=== PATIENT | male | born 1965 | race Caucasian/White ===

== ENCOUNTER → 2023-02-12 10:02 | Outpatient (CLI) | payer BC, SELFPAY ==
[2023-02-12 19:53] LABS: Basophils # 0.1 K/mm3 (0-0.2); Basophils % 0.7 % (0.1-2.0); Eosinophils # 0.3 K/mm3 (0.0-0.4); Eosinophils % 3.6 % (0.1-12.0); Hematocrit 54.2 % (42.0-52.0); Hemoglobin 17.6 g/dL (14.1-18.0); Lymphocytes % 23.6 % (10-50); Mean Corpuscular HGB Conc 32.5 g/dL (31.8-35.4); Mean Corpuscular Volume 98.7 fl (80-94); Mean Platelet Volume 10.8 fl (7.4-10.4); Monocytes # 0.7 K/mm3 (0.1-1.0); Neutrophils # 5.3 K/mm3 (1.8-7.8); Platelet Count 206 K/mm3 (142-424); Red Blood Count 5.49 M/mm3 (4.60-6.20); Red Cell Distribution Width 13.7 % (11.5-17.5); White Blood Count 8.3 K/mm3 (4.8-10.8)
[2023-02-12 19:57] LABS: Alanine Aminotransferase 22 U/L (12-78); Albumin Level 4.4 g/dl (3.5-5.0); Albumin/Globulin Ratio 1.4 (1.1-1.8); Alkaline Phosphatase 59 U/L (38-126); Anion Gap 11.6 mEq/L (5-15); Aspartate Amino Transferase 21 U/L (17-59); Bilirubin,Total 0.7 mg/dl (0.2-1.3); Blood Urea Nitrogen 19 mg/dl (9-20); Calcium 9.6 mg/dl (8.4-10.2); Carbon Dioxide 22 mmol/L (22.0-30.0); Chloride 109 mmol/L (98-107); Estimated Glomerular Filt Rate 87 ml/min (>60); GFR (African American) 106 ML/MIN (>60); Globulin 3.2 g/dL (1.3-3.2); Glucose 100 mg/dl (74-100); Potassium 4.6 mmoL/L (3.5-5.1); Sodium 138 mmol/L (136-145); Total Protein,Serum 7.6 g/dl (6.3-8.2)
[2023-02-12 20:25] LABS: Prostate Specific Ag Screen 1.6 ng/ml (0.0-4.0); Thyroid Stimulating Hormone 0.78 uIU/mL (0.465-4.68)
[2023-02-12 21:29] LABS: Hemoglobin A1C 5.2 % (4.0-6.0)
== END ==
PROVIDERS: PCP Nurse Practitioner; Visit Provider Nurse Practitioner
DX: R42 Dizziness and giddiness (principal); Z12.5 Encounter for screening for malignant neoplasm of prostate; Z79.899 Other long term (current) drug therapy
CPT/HCPCS: 80053; 83036; 84443; 85025; G0103

== ENCOUNTER 2023-05-16 17:56 | Outpatient (CLI) | payer BC, SELFPAY ==
[2023-05-16 19:18] LABS: Basophils # 0.1 K/mm3 (0-0.2); Basophils % 1.1 % (0.1-2.0); Eosinophils # 0.3 K/mm3 (0.0-0.4); Eosinophils % 2.6 % (0.1-12.0); Hematocrit 52.6 % (42.0-52.0); Hemoglobin 17.7 g/dL (14.1-18.0); Lymphocytes % 20.9 % (10-50); Mean Corpuscular HGB Conc 33.6 g/dL (31.8-35.4); Mean Corpuscular Hemoglobin 33.5 pg (27.0-31.2); Mean Corpuscular Volume 99.4 fl (80-94); Mean Platelet Volume 10.3 fl (7.4-10.4); Monocytes # 0.6 K/mm3 (0.1-1.0); Monocytes % 6.3 % (1.7-9.3); Neutrophils # 6.7 K/mm3 (1.8-7.8); Neutrophils % 68.9 % (37.0-80.0); Platelet Count 206 K/mm3 (142-424); Red Blood Count 5.29 M/mm3 (4.60-6.20); Red Cell Distribution Width 13.6 % (11.5-17.5); White Blood Count 9.7 K/mm3 (4.8-10.8)
[2023-05-16 20:04] LABS: Chloride 105 mmol/L (98-107); Potassium 4.6 mmoL/L (3.5-5.1); Sodium 137 mmol/L (136-145)
[2023-05-16 20:06] LABS: Alanine Aminotransferase 26 U/L (12-78); Aspartate Amino Transferase 24 U/L (17-59); Blood Urea Nitrogen 14 mg/dl (9-20); Estimated Glomerular Filt Rate 69 ml/min (>60); GFR (African American) 84 ML/MIN (>60)
[2023-05-16 20:07] LABS: Albumin Level 4.4 g/dl (3.5-5.0); Albumin/Globulin Ratio 1.7 (1.1-1.8); Alkaline Phosphatase 64 U/L (38-126); Anion Gap 12.6 mEq/L (5-15); Bilirubin,Total 0.5 mg/dl (0.2-1.3); Calcium 9.3 mg/dl (8.4-10.2); Carbon Dioxide 24 mmol/L (22.0-30.0); Globulin 2.6 g/dL (1.3-3.2); Glucose 100 mg/dl (74-100)
== END 2023-05-16 23:59 ==
LOC: LAB.DROPOF 17:57
PROVIDERS: PCP Nurse Practitioner; Visit Provider Nurse Practitioner
DX: K92.1 Melena (principal)
CPT/HCPCS: 80053; 85025

== ENCOUNTER 2024-09-04 15:50 | Outpatient (CLI) | payer BC, SELFPAY ==
--- NOTE | 2024-09-04 16:02 | ECG_ITS ---
APPROVED REPORT Exam: Resting ECG HR:60 bpm ECG Measurements Heart Rate 60 AXES MA 166 P 59 QRSd 98 QRS 88 QT 403 T 52 QTc [address] DEVIATION AND MODERATE T-WAVE ABNORMALITY, CONSIDER ANTEROLATERAL ISCHEMIA [-0.1+ mV T-WAVE IN V3-V6] ABNORMAL ECG UNCONFIRMED REPORT Electronically signed by : Rc Lang MD 09/07/2024 08:06:27
--- NOTE | 2024-09-04 16:10 | XR_ITS ---
FINAL REPORT TECHNIQUE: Chest PA & Lateral CLINICAL HISTORY: Shortness of breath COMPARISON: None FINDINGS: 2 views of the chest were performed. The heart size is normal. The mediastinum is within normal limits. There is no acute cardiopulmonary process. There are no pleural effusions. There is no pneumothorax. The bony thorax appears intact. IMPRESSION: No acute cardiopulmonary process. Reviewed, Interpreted and Dictated by Tutu Butler MD Transcribed by Darcy Swain Authenticated and [facility]
[2024-09-04 16:54] LABS: Basophils # 0.1 K/mm3 (0-0.2); Basophils % 0.7 % (0.1-2.0); Eosinophils # 0.3 Kmm3 (0.0-0.4); Eosinophils % 3.2 % (0.1-12.0); Hematocrit 48.4 % (42.0-52.0); Hemoglobin 16.3 g/dL (14.1-18.0); Lymphocytes # 2.4 K/mm3 (0.7-4.5); Lymphocytes % 24.7 % (10-50); Mean Corpuscular HGB Conc 33.7 g/dL (31.8-35.4); Mean Corpuscular Hemoglobin 31.5 pg (27.0-31.2); Mean Corpuscular Volume 93.4 fl (80-94); Monocytes # 0.9 K/mm3 (0.1-1.0); Neutrophils # 5.9 K/mm3 (1.8-7.8); Neutrophils % 62.2 % (37.0-80.0); Nucleated Red Blood Cells # 0 10^3/uL; Nucleated Red Blood Cells % 0 %; Platelet Count 202 K/mm3 (142-424); Red Blood Count 5.18 M/mm3 (4.60-6.20); Red Cell Distribution Width 13.1 % (11.5-17.5); Red Cell Distribution Width-SD 44.8 fL; White Blood Count 9.5 K/mm3 (4.8-10.8)
[2024-09-04 17:19] LABS: Alanine Aminotransferase 16 U/L (12-78); Albumin Level 4.9 g/dl (3.5-5.0); Alkaline Phosphatase 59 U/L (38-126); Anion Gap 10.1 mEq/L (5-15); Aspartate Amino Transferase 21 U/L (17-59); Bilirubin,Total 0.8 mg/dl (0.2-1.3); Blood Urea Nitrogen 13 mg/dl (9-20); Calcium 10.3 mg/dl (8.4-10.2); Carbon Dioxide 25 mmol/L (22.0-30.0); Chloride 106 mmol/L (98-107); Estimated Glomerular Filt Rate 69 ml/min (>60); GFR (African American) 83 ML/MIN (>60); Globulin 2.4 g/dL (1.3-3.2); Glucose 81 mg/dl (74-100); Potassium 4.1 mmoL/L (3.5-5.1); Sodium 137 mmol/L (136-145); Total Protein,Serum 7.3 g/dl (6.3-8.2)
[2024-09-04 17:49] LABS: Prostate Specific Ag Screen 1.9 ng/ml (0.0-4.0); Thyroid Stimulating Hormone 1.22 uIU/mL (0.465-4.68)
[2024-09-04 18:08] LABS: Vitamin B12 920 pg/mL (239-931)
[2024-09-04 18:50] LABS: Hemoglobin A1C 5.2 % (4.0-6.0)
== END 2024-09-04 23:59 | disposition home or self-care (01) ==
LOC: RT 15:51
PROVIDERS: PCP Nurse Practitioner; Visit Provider Nurse Practitioner
DX: R06.02 Shortness of breath (principal); Z13.1 Encounter for screening for diabetes mellitus; Z12.5 Encounter for screening for malignant neoplasm of prostate; Z87.891 Personal history of nicotine dependence; R94.31 Abnormal electrocardiogram [ECG] [EKG]
CPT/HCPCS: 36415; 71046; 80053; 82607; 83036; 84443; 85025; 93005; G0103

== ENCOUNTER 2024-09-13 11:05 | Outpatient (CLI) | payer BC, SELFPAY ==
[2024-09-13 12:06] LABS: Cholesterol 215 mg/dl (140-200); Triglycerides 112 mg/dl (30-150); VLDL Cholesterol 22 mg/dL (0-40)
[2024-09-13 12:07] LABS: Chol/HDL Ratio 5.5 (1-3.5); HDL Cholesterol 39 mg/dl (40-60)
[2024-09-13 12:17] LABS: Direct LDL Cholesterol 152.44 mg/dL (100-129)
== END 2024-09-13 23:59 | disposition home or self-care (01) ==
LOC: LAB 11:06
PROVIDERS: PCP Nurse Practitioner; Visit Provider Nurse Practitioner
DX: Z13.220 Encounter for screening for lipoid disorders (principal)
CPT/HCPCS: 36415; 80061

== ENCOUNTER 2024-09-16 15:22 | Outpatient (CLI) | payer BC, SELFPAY ==
--- NOTE | 2024-12-16 10:22 | PC.NURSE ---
[employer] notified RT - no data on monitor - no charge to patient
== END 2024-09-16 23:59 | disposition home or self-care (01) ==
LOC: RT 15:23
PROVIDERS: PCP Nurse Practitioner; Visit Provider Nurse Practitioner
DX: R94.31 Abnormal electrocardiogram [ECG] [EKG] (principal); R06.02 Shortness of breath
CPT/HCPCS: 93270

== ENCOUNTER 2024-09-18 13:08 | Outpatient (CLI) | payer BC, SELFPAY ==
--- NOTE | 2024-09-18 13:45 | CA_ITS ---
APPROVED REPORT EXAM: Comprehensive 2D, Doppler, and color-flow Echocardiogram Focus Puller: Bettie Henson, MAURICIO, RVS Ht: 5 ft 7 in Wt: 203lbs BSA: 2.04 BP: 123/59 mmHg Indications: Palpitations, Smoker, HLD, SOB 2D Dimensions IVSd 0.88 cm M: 0.6-1.2 LVEF (Visual) 75.10 % PWd 0.90 cm M: 0.6 - 1.2 LVDd 4.82 cm M: 4.2 - 5.9 LVDs 2.70 cm M: 2.5 - 4.0 Left Atrium 3.46 cm M: 3.0 - 4.0 M-Mode Dimensions RVDd 2.53 cm (0.9-2.6) LA Diam 3.24 cm (1.9-4.0) LVDd 4.95 cm (3.5-5.7) LVDs 4.01 cm (3.5-5.7) IVSd 1.02 cm (0.6-1.1) PWd 0.95 cm (0.6-1.1) EF (Teich) 39.00% EPSs 0.52 cm FS 19.00% EDV (Teich) 115.50 mL TAPSE 2.66 (<1.7) ESV (Teich) 70.40 mL LV Diastology E Decel Time 220 (160-240 msec) E/A Ratio 1.19 MED A' 10.00 cm/s LAT A' 9.20 cm/s Aortic Valve PEYTON Index 1.26 cm2/m2 AoV Peak Cheikh. 103.0 (50-130 cm/s) AO Peak GR. 4.20 mmHg AO Mean GR. 2.20 (<5 mmHg) AO VTI 22.5 (18-25 cm) PEYTON (VTI) 2.63 (2.5-4.5 cm2) Mitral Valve MV A Velocity 62.0 (40-130 cm/s) E/A Ratio 1.19 Tricuspid Valve TR P. Velocity 182.00 cm/s RAP Estimate 10.00 mmHg RVSP 23.20 mmHg Left Ventricle The left ventricle is normal size. The left ventricular systolic function is normal. The left ventricular ejection fraction is within the normal range. There is normal left ventricular wall thickness. There is normal LV segmental wall motion. The left ventricular diastolic function is normal. LVEF is 55%. Right Ventricle The right ventricle is normal size. The right ventricular systolic function is normal. Atria The left atrium size is normal. The right atrium size is normal. There is no Doppler evidence of interatrial shunt. Aortic Valve The aortic valve is normal in structure. There is no aortic valvular stenosis. No aortic regurgitation is present. Mitral Valve The mitral valve is normal in structure. No evidence of mitral valve stenosis. There is no mitral valve regurgitation noted. Tricuspid Valve Tricuspid valve is grossly normal in structure and function. Trace tricuspid regurgitation. There is insufficient TR jet to estimate RVSP. Pulmonic Valve The pulmonary valve is normal in structure. Trace pulmonic regurgitation. Great Vessels The aortic root is normal in size. IVC is normal in size and collapses >50% with inspiration. Pericardium There is no pericardial effusion. Other Information Study Quality: Adequate Conclusion Normal biventricular systolic function. No significant valvular stenosis or regurgitation. Electronically signed by : Carol Erickson MD 09/28/2024 21:09:43
--- NOTE | 2024-09-18 14:30 | CT_ITS ---
FINAL REPORT TECHNIQUE: Axial CT images of the chest were obtained without contrast. Coronal and sagittal reconstructed images were also obtained. Low-dose protocol was utilized. This study was performed with techniques to keep radiation doses as low as reasonably achievable (ALARA). Individualized dose reduction techniques using automated exposure control or adjustment of mA and/or kV according to the patient's size were employed. 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 There are calcified left hilar lymph nodes. There are few small scattered mediastinal lymph nodes. The heart size is normal. There is no pericardial or pleural effusion. Lung window images demonstrate calcified granulomas in the left lower lobe of the lung. Limited images of the upper abdomen are unremarkable. IMPRESSION: Lung RADS category 1. Recommend 12 month follow-up low-dose chest CT per Fleischner criteria. Reviewed, Interpreted and Dictated by Tutu Butler MD Transcribed by Darcy Swain Authenticated and [facility]
== END 2024-09-18 23:59 | disposition home or self-care (01) ==
LOC: RT 13:10
PROVIDERS: PCP Nurse Practitioner; Visit Provider Nurse Practitioner
DX: E78.5 Hyperlipidemia, unspecified (principal); R00.2 Palpitations; R06.02 Shortness of breath; F17.200 Nicotine dependence, unspecified, uncomplicated; Z80.1 Family history of malignant neoplasm of trachea, bronchus and lung; Z12.2 Encounter for screening for malignant neoplasm of respiratory organs
CPT/HCPCS: 71271; 93306

== ENCOUNTER 2024-11-06 09:44 | Outpatient (CLI) | payer BC, SELFPAY ==
--- NOTE | 2024-11-06 | CA_ITS ---
APPROVED REPORT Exam: Exercise Treadmill Technologist: Mariela Maynard Ht: 5 ft 7 in Wt: 199 lbs BSA: 2.02 m2 HR: 67 bpm BP: 163/91 mmHg Medical History Cardiac Risk Factors: Smoking Stress Test Details HR Resting HR: 67 bpm Max Heart Rate (APMHR): 162.010450 bpm Target HR (85% APMHR): 137.033647 bpm Recovery HR: 93 bpm BP Resting BP: 163.0/91.0 mmHg Recovery BP: 193.0/73.0 mmHg ECG Stress ECG Conclusion During lakia protocol pt stopped due to fatigue. Pt experinced SOA. PVCs and PACs noted. <1.5mm ST segment Electronically signed by : Carol Erickson MD 11/06/2024 12:37:36
--- OUTSIDE RECORDS SUMMARY | 2024-11-06 09:49 | XMS_ITS | Clinical Summary ---
Author Organization [facility] Address [address] [place] [address] Phone Care Team Providers Care Lining Stuffer Name Role Phone Unavailable Primary Care Provider Unavailabl e Allergies No known active allergies Medications No known medications Active Problems Problem Noted Date Diagnosed Date Wears glasses Surgical History Surgery Date Site/Laterality Comments TONSILLECTOMY TYMPANOSTOMY TUBE PLACEMENT DENTAL SURGERY upper dentures, missing teeth on bottom, wisdom teeth removed EYE SURGERY 05/07/2005 - 05/06/2006 Bilateral LASIK HERNIA REPAIR 05/07/1974 - 05/06/1975 Left inguinal FOOT SURGERY Bilateral ligament/tendon repair BICEPS TENDON REPAIR 03/10/2016 Left LEFT OPEN DISTAL BICEPS TENDON REPAIR ; Surgeon: Gerald Shukla MD; Location: [facility]; Service: Orthopedics Medical devices from this surgery are in the Medical Devices section. Medical History Medical History Date Comments Smoker 1.5 PPD, started smoking at age 21 Wears glasses Wears dentures upper dentures, missing teeth on bottom Family History Medical History Relation Name Comments COPD Father Diabetes Father on dialysis Heart Disease Father CABG High Blood Pressure Father High Cholesterol Father COPD Mother Heart Disease Mother High Blood Pressure Mother Relation Name Status Comments Father Alive Mother Alive Social History Tobacco Use Types Packs/Day Years Used Date Smoking Tobacco: Every Day Cigarettes 1 38.5 Started: 05/07/1986 Smokeless Tobacco: Never Alcohol Use Standard Drinks/Week Comments No 0 (1 standard drink = 0.6 oz pur e alcohol) Sex and Gender Information Value Date Recorded Sex Assigned at Not on file Legal Sex Male 2:59 PM EDT Gender Identity Not on file Sexual Orientation Not on file Obstetrics History Last Filed Vital Signs Vital Sign Reading Time Taken Comments Blood Pressure 154/78 03/29/2023 11:00 AM EST Pulse 63 03/29/2023 11:00 AM EST Temperature 36.8 C (98.3 F) 03/29/2023 11:00 AM EST Respiratory Rate 16 03/29/2023 11:00 AM EST Oxygen Saturation 99% 03/29/2023 10:55 AM EST Inhaled Oxygen Concentration - - Weight 95.3 kg (210 lb) 03/29/2023 11:00 AM EST Height 171.5 cm (5' 7.5 ) 03/29/2023 11:00 AM ES T Body Mass Index 32.41 03/29/2023 11:00 AM EST Plan of Treatment Health Maintenance Due Date Last Done Comments Annual Wellness Exam 1969 DTaP/TDaP/Td (1 - Tdap) 1985 Hepatitis B Vaccine (1 of 3 - 19+ 3-dose series) 1985 Pneumococcal Vaccine 50+ (1 of 2 - PCV) 1985 Cologuard 09/10/2011 Colon Cancer Screening 09/10/2011 Colonoscopy 09/10/2011 FIT 09/10/2011 Sigmoidoscopy 09/10/2011 Virtual Colonography 09/10/2011 Low Dose Lung Cancer Screening 2016 Zoster (1 of 2) 2016 COVID-19 Vaccine ( - 2023-2 5 season) 2024 12/15/2020, 11/16/2020 Influenza Vaccine (#1) 2025 Meningococcal B Vaccine Aged Out No l onger eligible based on patient's age to complete this topic Medical Devices Implanted Type Area Retreader Device Identifier Shelf Expiration Date Model / Serial / Lot System Implant Repair Biceps Distal - [id number] Implanted:Qty: 1 on 03/10/2016 by Gerald Shukla MD at [facility] Left: Arm [employer] 12/04/2020 [id number] / / [id number] Insurance [facility]
== END 2024-11-06 23:59 | disposition home or self-care (01) ==
LOC: RT 09:44
PROVIDERS: PCP Nurse Practitioner; Visit Provider Physician Assistant
DX: I49.1 Atrial premature depolarization (principal); I49.3 Ventricular premature depolarization; R94.31 Abnormal electrocardiogram [ECG] [EKG]
CPT/HCPCS: 93016; 93017; 93018